=== PATIENT | male | born 1965 | race Caucasian/White ===

== ENCOUNTER 2017-10-30 10:48 | Outpatient (CLI) | payer MEDICARE, MEDICAID ==
[~2017-10-30 10:48] MED LIST: FLUT16SP2 NS; IBUP-1984 PO; KEP500T PO; NORCO10T PO
== END 2017-10-30 23:59 | disposition home or self-care (01) ==
LOC: RAD 10:48
PROVIDERS: ATTEND Psychiatry & Neurology Vascular Neurology
DX: G40.309 Generalized idiopathic epilepsy and epileptic syndromes, not intractable, without status epilepticus (principal); I10 Essential (primary) hypertension; J45.909 Unspecified asthma, uncomplicated
CPT/HCPCS: 95816

== ENCOUNTER 2023-06-23 11:30 | Day surgery (SDC) | payer MEDICARE, MEDICAID ==
[2023-06-16 14:49] LABS: BASOPHILS # (AUTO) 0.1 X10'3 (0-0.2); BASOPHILS % (AUTO) 1.4 % (0-1); EOSINOPHILS # (AUTO) 0.1 X10'3 (0-0.9); EOSINOPHILS % (AUTO) 1.8 % (0-6); LYMPHOCYTES # (AUTO) 0.9 X10'3 (1.1-4.8); LYMPHOCYTES % (AUTO) 16.1 % (21-51); MEAN CORPUSCULAR HGB CONC 33.1 g/dL (33.0-36.5); MEAN CORPUSCULAR VOLUME 93.7 FL (78-98); MEAN PLATELET VOLUME 8.6 FL (7.4-10.4); MONOCYTES # (AUTO) 0.4 X10'3 (0-0.9); MONOCYTES % (AUTO) 6.8 % (2-12); NEUTROPHILS # (AUTO) 4.2 X10'3 (1.8-7.7); NEUTROPHILS % (AUTO) 73.9 % (42-75); PRE OP HEMATOCRIT 36.2 % (42.0-52.0); PRE OP PLATELET COUNT 243 X10'3 (140-440); PRE OP WHITE BLOOD COUNT 5.7 10'3 (4.8-10.8); RED BLOOD COUNT 3.87 X10'6 (4.70-6.10); RED CELL DISTRIBUTION WIDTH 14.4 % (11.5-14.5)
[2023-06-16 15:01] LABS: ALBUMIN 3.9 G/DL (3.4-5.0); ALBUMIN/GLOBULIN RATIO 1.3 (1.1-1.5); ALKALINE PHOSPHATASE 97 IU/L (46-116); BLOOD UREA NITROGEN 16 MG/DL (7-18); BUN/CREATININE RATIO 17.2 (10.0-20.0); CALCIUM 8.9 MG/DL (8.5-10.1); CHLORIDE 98 MMOL/L (99-107); CREATININE 0.93 MG/DL (0.60-1.10); PRE OP ALT 19 U/L (30-65); PRE OP ANION GAP 3 (8-16); PRE OP AST 17 U/L (10-37); PRE OP BILIRUB, TOTAL 0.2 MG/DL (0.0-1.0); PRE OP GLUCOSE 97 MG/DL (70-104); PRE OP POTASSIUM 3.9 MMOL/L (3.4-5.1); PRE OP SODIUM 132 MMOL/L (135-145); TOTAL CARBON DIOXIDE 31.5 MMOL/L (24-32); eGFR 83 ML/MIN
[2023-06-23] VITALS (7 sets, daily range): BP systolic 110–130; BP diastolic 63–74; PULSE 55–70; RESP 10–18; TEMP 97.9; O2SAT 95–100
[~2023-06-23] VITALS: Ht 167.6 cm; Wt 66.8 kg
[~2023-06-23 11:30] MED LIST changes: +AMLO5TAB16 PO; +B6; +BRIV100T PO; +BROMELAIN; +FLAXSEED OIL; -FLUT16SP2 NS; +HYDR-3968 PO; -IBUP-1984 PO; -KEP500T PO; +LIDOCAINE 4% (40MG/ML) topical solution 50ml **BRONCH ONLY ONE; +LISI20TA28 PO; +MELO-102 PO; -NORCO10T PO; +OXCA150T14 PO; +OXCA150T53 PO; +[UNRECOGNIZED DRUG - OTHER]; +epiNEPHrine 1 MG/ML 1 ml ampule **BRONCH ONLY ONE; +famotidine 20mg tablet PO ONE; +ringers solution, lacted 1,000 ML IV SCH
[2023-06-23] MEDS ORDERED: PHENYLephrine 10mg/ml 5ml injection IV ONE (12:17)
[2023-06-23] MEDS ORDERED: sevoflurane 250ml liquid IH ONE (12:17)
[2023-06-23] MEDS ORDERED: acetaminophen 1000 MG/100ml vial IV ONE (12:17)
[2023-06-23] MEDS ORDERED: dexamethasone sod phosphate 10mg/ml inj ONE (12:17)
[2023-06-23] MEDS ORDERED: ondansetron/PF 4mg/2ml inj ONE (12:30)
[2023-06-23] MEDS ORDERED: rocuronium 10mg/ml inj IV ONE (12:31)
[2023-06-23] MEDS ORDERED: LIDOcaine 2% (20mg/ml) 5ml vial ONE (12:31)
[2023-06-23] MEDS ORDERED: propofol inj 20 ML IV ONE (12:31)
[2023-06-23] MEDS ORDERED: INDOCYANINE GREEN 25 MG/10 ML VIAL IV ONE (12:39)
[2023-06-23] MEDS ORDERED: sugammadex 200mg/2ml injection IV ONE (12:48)
--- NOTE | 2023-06-23 13:20 | NUR ---
Received from OR via [facility], accompanied by Anesthesiologist Dany and report given by Anesthesiolgist. Pt sleepy but responding appropriately. NO c/o pain or discomfort. 10L SM, o2 saturation 99%. VSS. Will continue to monitor. CXR paged and ordered per Dr. Giron. Addendum: 06/23/23 at 1343 by Suzan Nicole RN Amended: Links added.
== END 2023-06-23 15:10 | disposition home or self-care (01) ==
LOC: PRE-OP 11:30 → PAS 15:10
PROVIDERS: ATTEND Internal Medicine Critical Care Medicine
DX: R91.8 Other nonspecific abnormal finding of lung field (principal); Z79.899 Other long term (current) drug therapy; Z88.8 Allergy status to other drugs, medicaments and biological substances; Z88.5 Allergy status to narcotic agent; Z91.041 Radiographic dye allergy status; Z85.038 Personal history of other malignant neoplasm of large intestine
CPT/HCPCS: 31624; 31653; 36415; 71045; 71250; 80053; 82948; 85025; 87070; 93005; 93306; 94760; J0131; J1100; J2370; J2405; J2704; J3490; J7120; Z7506; Z7508; Z7512; 31622; 31627; 31628; 31652; 88173; 88305; A4618; J0171